=== PATIENT | male | born 1960 | race Caucasian/White ===

== ENCOUNTER 2016-06-30 08:37 | Emergency (ER) | payer MEDICAID ==
[~2016-06-30 08:37] MED LIST: ASPI81TA85 PO; LOVA1CAP17 PO; PERCOCET PO; TRAZ50TA4 PO; simvistatin PO
[2016-06-30] MEDS ORDERED: ADACEL/BOOSTRIX VACCINE (DIPHTH/PERTUSS/ACELL/TETANUS)0.5ML SYR (90715) As Ordered ONE (09:20)
--- NOTE | 2016-06-30 10:40 | REP ---
UNILATERAL RIGHT RIBS, PA CHEST, FIVE VIEWS: HISTORY: Injury. The lungs are clear. The heart is normal in size. The pulmonary vasculature is normal in appearance. The bony structure is intact. IMPRESSION: No acute disease. Signed by Sloan Alves MD 06/30/2016 10:41 A
--- NOTE | 2016-06-30 10:41 | REP ---
LEFT HIP, PELVIS, THREE VIEWS: HISTORY: Injury. There is no acute fracture or dislocation. The joint spaces are normal in appearance. IMPRESSION: There is no acute fracture or dislocation. Signed by Sloan Alves MD 06/30/2016 10:42 A
--- NOTE | 2016-06-30 10:43 | EDDOCDS ---
Nurse's Notes [facility] Name: Eliot Rodríguez Age: 56 yrs Sex: Male : 1960 Arrival Date: 06/30/2016 Time: 08:37 Bed TR7 Private MD: Diagnosis: Fall on same level due to ice and snow;Contusion of back wall of thorax;Contusion of left hip;Abrasion of right forearm Presentation: 06/30 08:55 Presenting complaint: Patient states: Right lateral chest left ankle and left hip pain mlb1 from fall last evening. Adult Sepsis Screening: The patient does not have new or worsening altered mentation. Patient's respiratory rate is less than 22. Systolic blood pressure is greater than 100. Patient has a qSOFA score of 0- Negative Sepsis Screen. Suicide/Homicide risk assessment- the patient denies having any suicidal and/or homicidal ideations and does not present with any other emotional, behavioral or mental health complaints. Status: Patient is not a job service consultant or dependent. Transition of care: patient was not received from another setting of care. 08:55 Acuity: LUCILA Level 4 mlb1 08:55 Method Of Arrival: Walkin/Carried/Asstd mlb1 Triage Assessment: 09:00 General: Appears uncomfortable, Behavior is appropriate for age, cooperative. Pain: mlb1 Location: right lateral posterior chest Pain currently is 7 out of 10 on a pain scale. HIV screening NA for this visit Offered previously. Historical: - Allergies: no known allergies; - Home Meds: 1. tizanidine oral oral Unknown as needed 2. Percocet 5-325 mg Oral tab 1 tab every 4 hours as needed 3. fenofibrate 40 mg oral tab 1 tab once daily 4. simvastatin 40 mg Oral tab 1 tab once daily 5. aspirin 81 mg Oral tab 1 tab once daily - PMHx: High Cholesterol; Chronic Back pain; - PSHx: left kidney; Lumbar Fusion; - Social history: Smoking status: Patient states former smoker of tobacco. No barriers to communication noted, The patient speaks fluent Liberian, Speaks appropriately for age. - Family history: Not pertinent. - : The pt / caregiver states he / she is not on anticoagulants. Home medication list is obtained from the patient. - Exposure Risk Screening:: None identified. Screenin:40 Screening information is obtained from the patient. Fall risk: No risks identified. ead Assistance ADL's: requires no assistance with activities of daily living. Abuse/DV Screen: The patient / caregiver reports he/she is: not in a situation that causes fear, pain or injury. Nutritional screening: No deficits noted. home support is adequate. Assessment: 10:40 Adult Sepsis Screening: The patient does not have new or worsening altered mentation. ead Patient's respiratory rate is less than 22. Systolic blood pressure is greater than 100. Patient has a qSOFA score of 0- Negative Sepsis Screen. General: Appears in no apparent distress, Behavior is appropriate for age, cooperative. Pain: Location: chest and right lateral posterior chest Pain currently is 6 out of 10 on a pain scale. Respiratory: Airway is patent Respiratory effort is even, unlabored. Musculoskeletal: Range of motion intact in all extremities. No deformity noted Swelling absent. Vital Signs: 09:01 BP 131 / 89; Pulse 72; Resp 16; Temp 98.4(TE); Pulse Ox 99% on R/A; Weight 90.72 kg mlb1 (R); Height 6 ft. 0 in. (182.88 cm) (R); Pain 7/10; 10:40 BP 118 / 77; Pulse 74; Resp 16; Temp 98.5(TE); Pulse Ox 99% on R/A; ead 09:01 Body Mass Index 27.12 (90.72 kg, 182.88 cm) mlb1 Vitals: 10:42 Log In Time: June 30, 2016 at 08:37. ead ED Course: 08:39 Patient visited by Wolfgang Pate. mm15 08:39 Patient moved to Waiting mm15 08:53 Patient moved to Triage 2 mlb1 08:55 Patient visited by Kan Melo RN. mlb1 08:56 Triage Initiated mlb1 09:03 Britt[facility] Malik [facility]-C [facility]. dt4 09:03 Bowen Mchugh MD is Attending Physician. dt4 09:03 Patient visited by Brittany Malik PA-C. dt4 09:20 Patient moved to PD2 / 27 mlb1 10:40 Patient moved to TR7 ead 10:40 The patient / caregiver is instructed regarding the plan of care and ED course. ead 10:40 No IV's were initiated during this patient's visit. No procedures done that require ead assistance. Administered Medications: 09:30 Drug: Tetanus- Diptheria-Acellular Pertussis 0.5 ml [diphth,pertussis(acel),tetanus 2.5 hs1 Lf unit-8 mcg-5 Lf/0.5mL IM syringe (0.5 mL)] {Voltage Inspector: [employer]. Exp: 07/29/2018. Lot #: [id number]. } Route: IM; Site: right deltoid; Order Results: There are currently no results for this order. Outcome: 10:34 Discharge ordered by Provider. dt4 10:41 Discharge Assessment: Patient awake and alert. obeys commands, Oriented to person, ead place and time. patient administered narcotics - no. The following High Risk Discharge criteria are identified: None. Discharged to home ambulatory. Condition: unchanged. Discharge instructions given to patient, Instructed on discharge instructions, follow up and referral plans. Demonstrated understanding of instructions, Pt was receptive of discharge instructions/ teaching. No special radiology studies were completed. Property sent home with patient. 10:42 Patient left the ED. ead Signatures: Kan Melo RN RN mlb1 Sakina Adams RN RN hs1 Wolfgang Pate mm15 Magali MurrellRN RN ead Brittany Malik PA-C PA-C dt4 Corrections: (The following items were deleted from the chart) 09:53 09:32 Tetanus- Diptheria-Acellular Pertussis 0.5 ml IM in right deltoid Voltage Inspector: hs1 [employer] Lot: [id number] Exp: 01/25/2017 hs1 MTDD
--- NOTE | 2016-06-30 10:43 | EDDOCDS ---
Physician Documentation [facility] Name: Eliot Rodríguez Age: 56 yrs Sex: Male : 1960 Arrival Date: 06/30/2016 Time: 08:37 Bed TR7 Private MD: Disposition: 06/30/16 10:34 Discharged to Home/Self Care. Impression: Fall on same level due to ice and snow, Contusion of back wall of thorax, Contusion of left hip, Abrasion of right forearm. - Condition is Stable. - Discharge Instructions: Abrasion, Chest Contusion. - Medication Reconciliation, Local Pharmacy Hours form. - Follow up: Emergency Department; When: As needed; Reason: Worsening of conditions. Follow up: Private Physician; When: 2 - 3 days; Reason: Wound/Symptom Recheck, Recheck today's complaints, Continuance of care. - Problem is new. - Symptoms are unchanged. - Notes: THERE WAS NO FRACTURES ON YOUR XRAYS TODAY. PLEASE FOLLOW UP WITH YOUR PRIMARY CARE PROVIDER IN THE NEXT FEW DAYS TO RECHECK YOUR SYMPTOMS. YOU MAY TAKE THE PERCOCET YOU HAVE AT HOME FOR PAIN. Historical: - Allergies: no known allergies; - Home Meds: 1. tizanidine oral oral Unknown as needed 2. Percocet 5-325 mg Oral tab 1 tab every 4 hours as needed 3. fenofibrate 40 mg oral tab 1 tab once daily 4. simvastatin 40 mg Oral tab 1 tab once daily 5. aspirin 81 mg Oral tab 1 tab once daily - PMHx: High Cholesterol; Chronic Back pain; - PSHx: left kidney; Lumbar Fusion; - Social history: Smoking status: Patient states former smoker of tobacco. No barriers to communication noted, The patient speaks fluent Paraguayan, Speaks appropriately for age. - Family history: Not pertinent. - : The pt / caregiver states he / she is not on anticoagulants. Home medication list is obtained from the patient. - Exposure Risk Screening:: None identified. Vital Signs: 06/30 09:01 BP 131 / 89; Pulse 72; Resp 16; Temp 98.4(TE); Pulse Ox 99% on R/A; Weight 90.72 kg / mlb1 200 lbs (R); Height 6 ft. 0 in. (182.88 cm) (R); Pain 7/10; 10:40 BP 118 / 77; Pulse 74; Resp 16; Temp 98.5(TE); Pulse Ox 99% on R/A; ead 09:01 Body Mass Index 27.12 (90.72 kg, 182.88 cm) mlb1 MDM: 09:11 Tetanus- Diptheria-Acellular Pertussis 0.5 ml IM once; Routine booster 10-64yrs, >64 dt4 with child contact [employer] ordered. 09:12 Rib Unilat W/PA Chest Only Ordered. EDMS 09:13 Spine. Lumbosacral, Complete Ordered. EDMS 09:13 Hip,AP,LAT to include Pelvis Ordered. EDMS 09:53 Tetanus- Diptheria-Acellular Pertussis 0.5 ml IM once; Routine booster 10-64yrs, >64 hs1 with child contact [employer] ordered. Administered Medications: 09:30 Drug: Tetanus- Diptheria-Acellular Pertussis 0.5 ml [diphth,pertussis(acel),tetanus 2.5 hs1 Lf unit-8 mcg-5 Lf/0.5mL IM syringe (0.5 mL)] {Director Of Digital Marketing: [employer]. Exp: 07/29/2018. Lot #: [id number]. } Route: IM; Site: right deltoid; Signatures: Dispatcher [employer] Kan Sandhu RN RN mlb1 Sakina Adams RN RN hs1 Magali Murrell RN RN eaBrittany Persaud PA-C PA-C dt4 MTDD
--- NOTE | 2016-07-02 11:43 | EDDOCDS ---
Physician Documentation [facility] Name: Eliot Rodríguez Age: 56 yrs Sex: Male : 1960 Arrival Date: 06/30/2016 Time: 08:37 Bed TR7 Private MD: Disposition: 06/30/16 10:34 Discharged to Home/Self Care. Impression: Fall on same level due to ice and snow, Contusion of back wall of thorax, Contusion of left hip, Abrasion of right forearm. - Condition is Stable. - Discharge Instructions: Abrasion, Chest Contusion. - Medication Reconciliation, Local Pharmacy Hours form. - Follow up: Emergency Department; When: As needed; Reason: Worsening of conditions. Follow up: Private Physician; When: 2 - 3 days; Reason: Wound/Symptom Recheck, Recheck today's complaints, Continuance of care. - Problem is new. - Symptoms are unchanged. - Notes: THERE WAS NO FRACTURES ON YOUR XRAYS TODAY. PLEASE FOLLOW UP WITH YOUR PRIMARY CARE PROVIDER IN THE NEXT FEW DAYS TO RECHECK YOUR SYMPTOMS. YOU MAY TAKE THE PERCOCET YOU HAVE AT HOME FOR PAIN. Historical: - Allergies: no known allergies; - Home Meds: 1. tizanidine oral oral Unknown as needed 2. Percocet 5-325 mg Oral tab 1 tab every 4 hours as needed 3. fenofibrate 40 mg oral tab 1 tab once daily 4. simvastatin 40 mg Oral tab 1 tab once daily 5. aspirin 81 mg Oral tab 1 tab once daily - PMHx: High Cholesterol; Chronic Back pain; - PSHx: left kidney; Lumbar Fusion; - Social history: Smoking status: Patient states former smoker of tobacco. No barriers to communication noted, The patient speaks fluent Cook Islander, Speaks appropriately for age. - Family history: Not pertinent. - : The pt / caregiver states he / she is not on anticoagulants. Home medication list is obtained from the patient. - Exposure Risk Screening:: None identified. Vital Signs: 06/30 09:01 BP 131 / 89; Pulse 72; Resp 16; Temp 98.4(TE); Pulse Ox 99% on R/A; Weight 90.72 kg / mlb1 200 lbs (R); Height 6 ft. 0 in. (182.88 cm) (R); Pain 7/10; 10:40 BP 118 / 77; Pulse 74; Resp 16; Temp 98.5(TE); Pulse Ox 99% on R/A; ead 09:01 Body Mass Index 27.12 (90.72 kg, 182.88 cm) mlb1 MDM: 09:11 Tetanus- Diptheria-Acellular Pertussis 0.5 ml IM once; Routine booster 10-64yrs, >64 dt4 with child contact [employer] ordered. 09:12 Rib Unilat W/PA Chest Only Ordered. EDMS 09:13 Spine. Lumbosacral, Complete Ordered. EDMS 09:13 Hip,AP,LAT to include Pelvis Ordered. EDMS 09:53 Tetanus- Diptheria-Acellular Pertussis 0.5 ml IM once; Routine booster 10-64yrs, >64 hs1 with child contact [employer] ordered. 12:55 Financial registration complete. mm15 13:56 T-Sheet-- Draft Copy was scanned into [employer] and attached to record. 15:25 [facility] Payment Agreement was scanned into [employer] and attached to record. mm15 Administered Medications: 09:30 Drug: Tetanus- Diptheria-Acellular Pertussis 0.5 ml [diphth,pertussis(acel),tetanus 2.5 hs1 Lf unit-8 mcg-5 Lf/0.5mL IM syringe (0.5 mL)] {Medical Education Specialist: [employer]. Exp: 07/29/2018. Lot #: [id number]. } Route: IM; Site: right deltoid; Signatures: Dispatcher [employer] EDFaina Ramos, Reg Reg gb Kan Melo RN RN mlb1 Sakina Adams RN RN hs1 Wolfgang Pate mm15 Magali Murrell,RN RN Brittany Mercer PA-C PA-C dt4 The chart was reviewed and I authenticate all verbal orders and agree with the evaluation and treatment provided.Attachments: 13:56 T-Sheet-- Draft Copy gb 15:25 [facility] Payment Agreement mm15 Chart Complete MTDD
--- NOTE | 2016-07-02 11:43 | EDDOCDS ---
Nurse's Notes [facility] Name: Eliot Rodríguez Age: 56 yrs Sex: Male : 1960 Arrival Date: 06/30/2016 Time: 08:37 Bed TR7 Private MD: Diagnosis: Fall on same level due to ice and snow;Contusion of back wall of thorax;Contusion of left hip;Abrasion of right forearm Presentation: 06/30 08:55 Presenting complaint: Patient states: Right lateral chest left ankle and left hip pain mlb1 from fall last evening. Adult Sepsis Screening: The patient does not have new or worsening altered mentation. Patient's respiratory rate is less than 22. Systolic blood pressure is greater than 100. Patient has a qSOFA score of 0- Negative Sepsis Screen. Suicide/Homicide risk assessment- the patient denies having any suicidal and/or homicidal ideations and does not present with any other emotional, behavioral or mental health complaints. Status: Patient is not a patient service associate or dependent. Transition of care: patient was not received from another setting of care. 08:55 Acuity: LUCILA Level 4 mlb1 08:55 Method Of Arrival: Walkin/Carried/Asstd mlb1 Triage Assessment: 09:00 General: Appears uncomfortable, Behavior is appropriate for age, cooperative. Pain: mlb1 Location: right lateral posterior chest Pain currently is 7 out of 10 on a pain scale. HIV screening NA for this visit Offered previously. Historical: - Allergies: no known allergies; - Home Meds: 1. tizanidine oral oral Unknown as needed 2. Percocet 5-325 mg Oral tab 1 tab every 4 hours as needed 3. fenofibrate 40 mg oral tab 1 tab once daily 4. simvastatin 40 mg Oral tab 1 tab once daily 5. aspirin 81 mg Oral tab 1 tab once daily - PMHx: High Cholesterol; Chronic Back pain; - PSHx: left kidney; Lumbar Fusion; - Social history: Smoking status: Patient states former smoker of tobacco. No barriers to communication noted, The patient speaks fluent Monegasque, Speaks appropriately for age. - Family history: Not pertinent. - : The pt / caregiver states he / she is not on anticoagulants. Home medication list is obtained from the patient. - Exposure Risk Screening:: None identified. Screenin:40 Screening information is obtained from the patient. Fall risk: No risks identified. ead Assistance ADL's: requires no assistance with activities of daily living. Abuse/DV Screen: The patient / caregiver reports he/she is: not in a situation that causes fear, pain or injury. Nutritional screening: No deficits noted. home support is adequate. Assessment: 10:40 Adult Sepsis Screening: The patient does not have new or worsening altered mentation. ead Patient's respiratory rate is less than 22. Systolic blood pressure is greater than 100. Patient has a qSOFA score of 0- Negative Sepsis Screen. General: Appears in no apparent distress, Behavior is appropriate for age, cooperative. Pain: Location: chest and right lateral posterior chest Pain currently is 6 out of 10 on a pain scale. Respiratory: Airway is patent Respiratory effort is even, unlabored. Musculoskeletal: Range of motion intact in all extremities. No deformity noted Swelling absent. Vital Signs: 09:01 BP 131 / 89; Pulse 72; Resp 16; Temp 98.4(TE); Pulse Ox 99% on R/A; Weight 90.72 kg mlb1 (R); Height 6 ft. 0 in. (182.88 cm) (R); Pain 7/10; 10:40 BP 118 / 77; Pulse 74; Resp 16; Temp 98.5(TE); Pulse Ox 99% on R/A; ead 09:01 Body Mass Index 27.12 (90.72 kg, 182.88 cm) mlb1 Vitals: 10:42 Log In Time: June 30, 2016 at 08:37. ead ED Course: 08:39 Patient visited by Wolfgang Pate. mm15 08:39 Patient moved to Waiting mm15 08:53 Patient moved to Triage 2 mlb1 08:55 Patient visited by Kan Melo RN. mlb1 08:56 Triage Initiated mlb1 09:03 Brittany Malik PA-C is [facility]. dt4 09:03 Bowen Mchugh MD is Attending Physician. dt4 09:03 Patient visited by Brittany Malik PA-C. dt4 09:20 Patient moved to PD2 / 27 mlb1 10:40 Patient moved to TR7 ead 10:40 The patient / caregiver is instructed regarding the plan of care and ED course. ead 10:40 No IV's were initiated during this patient's visit. No procedures done that require ead assistance. 10:44 Rib Unilat W/PA Chest Only Returned. EDMS 10:44 Hip,AP,LAT to include Pelvis Returned. EDMS 13:56 T-Sheet-- Draft Copy was scanned into [employer] and attached to record. gb 15:25 [facility] Payment Agreement was scanned into [employer] and attached to record. mm15 Administered Medications: 09:30 Drug: Tetanus- Diptheria-Acellular Pertussis 0.5 ml [diphth,pertussis(acel),tetanus 2.5 hs1 Lf unit-8 mcg-5 Lf/0.5mL IM syringe (0.5 mL)] {Merchandise Manager: [employer]. Exp: 07/29/2018. Lot #: [id number]. } Route: IM; Site: right deltoid; Order Results: Radiology Order: Rib Unilat W/PA Chest Only Test: Rib Unilat W/PA Chest Only REASON FOR EXAMINATION: right rib pain after fall; UNILATERAL RIGHT RIBS, PA CHEST, FIVE VIEWS:; ; HISTORY: Injury.; ; The lungs are clear. The heart is normal in size. The pulmonary vasculature is; normal in appearance. The bony structure is intact.; ; IMPRESSION:; ; No acute disease.; ; ; Signed by; Solan Alves MD 06/30/2016 10:41 A; Radiology Order: Hip,AP,LAT to include Pelvis Test: Hip,AP,LAT to include Pelvis REASON FOR EXAMINATION: left hip pain after fall; LEFT HIP, PELVIS, THREE VIEWS:; ; HISTORY: Injury.; ; There is no acute fracture or dislocation. The joint spaces are normal in; appearance.; ; IMPRESSION:; ; There is no acute fracture or dislocation.; ; ; Signed by; Sloan Alves MD 06/30/2016 10:42 A; Outcome: 10:34 Discharge ordered by Provider. dt4 10:41 Discharge Assessment: Patient awake and alert. obeys commands, Oriented to person, ead place and time. patient administered narcotics - no. The following High Risk Discharge criteria are identified: None. Discharged to home ambulatory. Condition: unchanged. Discharge instructions given to patient, Instructed on discharge instructions, follow up and referral plans. Demonstrated understanding of instructions, Pt was receptive of discharge instructions/ teaching. No special radiology studies were completed. Property sent home with patient. 10:42 Patient left the ED. cassandra Signatures: Dispatcher [employer] EDMS Faina Melvin, Reg Reg Kan Araya RN RN mlb1 Sakina Adams RN RN hs1 Wolfgang Pate mm15 Magali Murrell RN RN Brittany Mercer PA-C PA-C dt4 Corrections: (The following items were deleted from the chart) 09:53 09:32 Tetanus- Diptheria-Acellular Pertussis 0.5 ml IM in right deltoid Merchandise Manager: hs1 [employer] Lot: [id number] Exp: 01/25/2017 hs1 Chart [facility]
--- NOTE | 2016-07-02 11:43 | EDDOCDS ---
Physician Documentation [facility] Name: Eliot Rodríguez Age: 56 yrs Sex: Male : 1960 Arrival Date: 06/30/2016 Time: 08:37 Bed TR7 Private MD: Disposition: 06/30/16 10:34 Discharged to Home/Self Care. Impression: Fall on same level due to ice and snow, Contusion of back wall of thorax, Contusion of left hip, Abrasion of right forearm. - Condition is Stable. - Discharge Instructions: Abrasion, Chest Contusion. - Medication Reconciliation, Local Pharmacy Hours form. - Follow up: Emergency Department; When: As needed; Reason: Worsening of conditions. Follow up: Private Physician; When: 2 - 3 days; Reason: Wound/Symptom Recheck, Recheck today's complaints, Continuance of care. - Problem is new. - Symptoms are unchanged. - Notes: THERE WAS NO FRACTURES ON YOUR XRAYS TODAY. PLEASE FOLLOW UP WITH YOUR PRIMARY CARE PROVIDER IN THE NEXT FEW DAYS TO RECHECK YOUR SYMPTOMS. YOU MAY TAKE THE PERCOCET YOU HAVE AT HOME FOR PAIN. Historical: - Allergies: no known allergies; - Home Meds: 1. tizanidine oral oral Unknown as needed 2. Percocet 5-325 mg Oral tab 1 tab every 4 hours as needed 3. fenofibrate 40 mg oral tab 1 tab once daily 4. simvastatin 40 mg Oral tab 1 tab once daily 5. aspirin 81 mg Oral tab 1 tab once daily - PMHx: High Cholesterol; Chronic Back pain; - PSHx: left kidney; Lumbar Fusion; - Social history: Smoking status: Patient states former smoker of tobacco. No barriers to communication noted, The patient speaks fluent Stateless, Speaks appropriately for age. - Family history: Not pertinent. - : The pt / caregiver states he / she is not on anticoagulants. Home medication list is obtained from the patient. - Exposure Risk Screening:: None identified. Vital Signs: 06/30 09:01 BP 131 / 89; Pulse 72; Resp 16; Temp 98.4(TE); Pulse Ox 99% on R/A; Weight 90.72 kg / mlb1 200 lbs (R); Height 6 ft. 0 in. (182.88 cm) (R); Pain 7/10; 10:40 BP 118 / 77; Pulse 74; Resp 16; Temp 98.5(TE); Pulse Ox 99% on R/A; ead 09:01 Body Mass Index 27.12 (90.72 kg, 182.88 cm) mlb1 MDM: 09:11 Tetanus- Diptheria-Acellular Pertussis 0.5 ml IM once; Routine booster 10-64yrs, >64 dt4 with child contact [employer] ordered. 09:12 Rib Unilat W/PA Chest Only Ordered. EDMS 09:13 Spine. Lumbosacral, Complete Ordered. EDMS 09:13 Hip,AP,LAT to include Pelvis Ordered. EDMS 09:53 Tetanus- Diptheria-Acellular Pertussis 0.5 ml IM once; Routine booster 10-64yrs, >64 hs1 with child contact [employer] ordered. 12:55 Financial registration complete. mm15 13:56 T-Sheet-- Draft Copy was scanned into [employer] and attached to record. 15:25 [facility] Payment Agreement was scanned into [employer] and attached to record. mm15 Administered Medications: 09:30 Drug: Tetanus- Diptheria-Acellular Pertussis 0.5 ml [diphth,pertussis(acel),tetanus 2.5 hs1 Lf unit-8 mcg-5 Lf/0.5mL IM syringe (0.5 mL)] {Associate Professor Of Radiology: [employer]. Exp: 07/29/2018. Lot #: [id number]. } Route: IM; Site: right deltoid; Signatures: Dispatcher [employer] EDFaina Ramos, Reg Reg gb Kan Melo RN RN mlb1 Sakina Adams RN RN hs1 Wolfgang Pate mm15 Magali Murrell,RN RN Brittany Mercer PA-C PA-C dt4 The chart was reviewed and I authenticate all verbal orders and agree with the evaluation and treatment provided.Attachments: 13:56 T-Sheet-- Draft Copy gb 15:25 [facility] Payment Agreement mm15 Chart Complete MTDD
--- NOTE | 2016-07-02 12:47 | REP ---
5 view lumbosacral spine 06/30/2016. Indication: Low back and left hip pain after fall Comparison : Lumbosacral spine series 07/20/2011 Findings: There has been previous discectomy with disc cage placement at L5-S1. There has also been previous posterior pedicular fusion bilaterally at L5 and S1 with vertical stabilization rods. A laminectomy defect is noted at this level( L5-S1). There is no acute fracture or spondylolisthesis. Bilateral SI joints are intact. Impression: prior laminectomy and discectomy at L5-S1 with disc cage in place. There is fusion of the L5-S1 disc space, without change. No acute fracture or spondylolisthesis in lumbosacral spine Signed by Gertrudis Alaniz MD 07/02/2016 12:38 P
== END 2016-06-30 10:42 | disposition home or self-care (01) ==
LOC: M ED 08:37
DX: S50.811A Abrasion of right forearm, initial encounter (principal); S20.221A Contusion of right back wall of thorax, initial encounter; S70.02XA Contusion of left hip, initial encounter; W00.0XXA Fall on same level due to ice and snow, initial encounter; Y92.017 Garden or yard in single-family (private) house as the place of occurrence of the external cause; Y93.K1 Activity, walking an animal; Y99.8 Other external cause status; E78.00 Pure hypercholesterolemia, unspecified; M54.9 Dorsalgia, unspecified; Z87.891 Personal history of nicotine dependence; Z79.899 Other long term (current) drug therapy; Z79.82 Long term (current) use of aspirin; Z98.1 Arthrodesis status

== ENCOUNTER → 2017-03-09 | Outpatient (REF) | payer OTHER ==
[~2017-03-09] MED LIST changes: +TRAZ50TA11 PO; -TRAZ50TA4 PO
[2017-03-21 12:59] LABS: SUMMARY SEE SEPARATE REPORT
== END ==
LOC: M SFHCLERA 12:19
PROVIDERS: ATTEND Physician Assistant
DX: Z02.89 Encounter for other administrative examinations (principal)

== ENCOUNTER → 2017-05-23 | Outpatient (CLI) | payer OTHER ==
[2017-05-23 14:45] LABS: BASO % 0.4 % (0.0-1.0); EOS # 0.1 10^3/uL (0.0-0.50); EOS % 1.3 % (0.0-3.0); IMMATURE GRANULOCYTE % 0.5 % (0-0); LYMPH # 2.3 10^3/uL (1.5-4.5); LYMPH % 28.2 % (24.0-44.0); MEAN CORPUSCULAR HEMOGLOBIN 31.8 pg (27.0-33.0); MEAN CORPUSCULAR HGB CONC 33.3 g/dl (32.0-36.5); MEAN CORPUSCULAR VOLUME 95.3 fl (80.0-96.0); MONO # 0.6 10^3/uL (0.0-0.8); MONO % 6.9 % (0.0-5.0); NEUTROPHILS % 62.7 % (36.0-66.0); PLATELET COUNT, AUTOMATED 169 10^3/uL (150-450); RED CELL DISTRIBUTION WIDTH 15.9 % (11.5-14.5)
[2017-05-23 15:02] LABS: ALBUMIN 4.1 GM/DL (3.2-5.2); ALBUMIN/GLOBULIN RATIO 1.32 (1.00-1.93); ALKALINE PHOSPHATASE 74 U/L (45-117); ALT/SGPT 26 U/L (12-78); ANION GAP 6 MEQ/L (8-16); AST/SGOT 13 U/L (7-37); BILIRUBIN,TOTAL 1.2 MG/DL (0.2-1.0); BLOOD UREA NITROGEN 13 MG/DL (7-18); CALCIUM LEVEL 8.7 MG/DL (8.5-10.1); CARBON DIOXIDE LEVEL 29 MEQ/L (21-32); CHLORIDE LEVEL 107 MEQ/L (98-107); CHOLESTEROL LEVEL 202 MG/DL (<200); CREATININE FOR GFR 0.91 MG/DL (0.70-1.30); GLOMERULAR FILTRATION RATE > 60.0 (>56); GLUCOSE, FASTING 87 MG/DL (70-105); POTASSIUM SERUM 4.2 MEQ/L (3.5-5.1); SODIUM LEVEL 142 MEQ/L (136-145); TOTAL PROTEIN 7.2 GM/DL (6.4-8.2); TRIGLYCERIDES LEVEL 211 MG/DL (<150)
== END ==
LOC: M WUC 11:18
PROVIDERS: ATTEND Family Medicine
DX: M54.9 Dorsalgia, unspecified (principal)

== ENCOUNTER 2017-12-22 06:29 | Emergency (ER) | payer OTHER ==
[2017-12-22] MEDS: KETOROLAC 60 MG/2 ML VIAL (J1885) IM (07:21)
== END 2017-12-22 08:02 | disposition home or self-care (01) ==
LOC: M ED 06:29
DX: S79.911A Unspecified injury of right hip, initial encounter (principal); S39.012A Strain of muscle, fascia and tendon of lower back, initial encounter; W19.XXXA Unspecified fall, initial encounter; Y92.098 Other place in other non-institutional residence as the place of occurrence of the external cause; M54.9 Dorsalgia, unspecified; G89.29 Other chronic pain; K21.9 Gastro-esophageal reflux disease without esophagitis; R56.9 Unspecified convulsions; Z98.1 Arthrodesis status
CPT/HCPCS: J1885

== ENCOUNTER 2018-05-10 10:50 | Emergency (ER) | payer OTHER ==
[2018-05-10 11:40] LABS: BASO % 0.5 % (0.0-1.0); EOS # 0.1 10^3/uL (0.0-0.50); EOS % 0.7 % (0.0-3.0); HEMATOCRIT 36.8 % (42.0-52.0); HEMOGLOBIN 12.7 g/dl (13.5-17.5); IMMATURE GRANULOCYTE % 0.4 % (0-3.0); LYMPH % 26.6 % (24.0-44.0); MEAN CORPUSCULAR HEMOGLOBIN 29.6 pg (27.0-33.0); MEAN CORPUSCULAR HGB CONC 34.5 g/dl (32.0-36.5); MEAN CORPUSCULAR VOLUME 85.8 fl (80.0-96.0); MONO # 0.4 10^3/uL (0.0-0.8); NEUTROPHILS # 5.1 10^3/uL (1.8-7.7); NEUTROPHILS % 66.8 % (36.0-66.0); PLATELET COUNT, AUTOMATED 168 10^3/uL (150-450); RED BLOOD COUNT 4.29 10^6/uL (4.30-6.10); RED CELL DISTRIBUTION WIDTH 15.9 % (11.5-14.5); WHITE BLOOD COUNT 7.6 10^3/uL (4.0-10.0)
[2018-05-10 12:11] LABS: ALBUMIN 4.2 GM/DL (3.2-5.2); ALKALINE PHOSPHATASE 63 U/L (45-117); ALT/SGPT 27 U/L (12-78); ANION GAP 8 MEQ/L (8-16); AST/SGOT 23 U/L (7-37); BILIRUBIN,TOTAL 1.3 MG/DL (0.2-1.0); BLOOD UREA NITROGEN 13 MG/DL (7-18); CALCIUM LEVEL 8.7 MG/DL (8.5-10.1); CARBON DIOXIDE LEVEL 28 MEQ/L (21-32); CHLORIDE LEVEL 106 MEQ/L (98-107); CREATININE FOR GFR 0.98 MG/DL (0.70-1.30); GLOMERULAR FILTRATION RATE > 60.0 (>56); GLUCOSE, FASTING 99 MG/DL (70-100); POTASSIUM SERUM 4.3 MEQ/L (3.5-5.1); SODIUM LEVEL 142 MEQ/L (136-145); TOTAL PROTEIN 7.2 GM/DL (6.4-8.2)
[2018-05-10 12:19] LABS: HEPATITIS B SURFACE ANTIBODY NEGATIVE (POSITIVE)
[2018-05-10 12:57] LABS: HIV SCREEN CENTAUR EXPOSED NEGATIVE (NEGATIVE)
[2018-05-10 12:58] LABS: HEPATITIS C VIRUS ABY INDEX 0.1 INDEX (<0.8)
[2018-05-10 13:57] LABS: HEPATITIS B SURFACE ANTIGEN NEGATIVE (NEGATIVE)
== END 2018-05-10 12:07 | disposition home or self-care (01) ==
LOC: M ED 10:50
DX: S61.051A Open bite of right thumb without damage to nail, initial encounter (principal); S62.662A Nondisplaced fracture of distal phalanx of right middle finger, initial encounter for closed fracture; Y04.1XXA Assault by human bite, initial encounter; Y92.89 Other specified places as the place of occurrence of the external cause; Z79.899 Other long term (current) drug therapy
CPT/HCPCS: 73140

== ENCOUNTER → 2018-05-10 | Outpatient (CLI) | payer OTHER ==
[2018-05-10 13:47] LABS: BASO % 0.6 % (0.0-1.0); EOS # 0.1 10^3/uL (0.0-0.50); EOS % 0.9 % (0.0-3.0); HEMATOCRIT 34.7 % (42.0-52.0); HEMOGLOBIN 12.2 g/dl (13.5-17.5); IMMATURE GRANULOCYTE % 0.3 % (0-3.0); LYMPH # 2.4 10^3/uL (1.5-4.5); LYMPH % 34.2 % (24.0-44.0); MEAN CORPUSCULAR HEMOGLOBIN 29.9 pg (27.0-33.0); MEAN CORPUSCULAR HGB CONC 35.2 g/dl (32.0-36.5); MONO # 0.4 10^3/uL (0.0-0.8); MONO % 5.1 % (0.0-5.0); NEUTROPHILS # 4.1 10^3/uL (1.8-7.7); NEUTROPHILS % 58.9 % (36.0-66.0); PLATELET COUNT, AUTOMATED 161 10^3/uL (150-450); RED BLOOD COUNT 4.08 10^6/uL (4.30-6.10); WHITE BLOOD COUNT 6.9 10^3/uL (4.0-10.0)
[2018-05-10 14:08] LABS: ERYTHROCYTE SEDIMENTATION RATE 20 mm/hr (0-20)
[2018-05-10 14:09] LABS: ESTIMATED AVERAGE GLUCOSE 82 MG/DL (60-110); HEMOGLOBIN A1c 4.5 %
[2018-05-10 14:23] LABS: ALBUMIN 4.3 GM/DL (3.2-5.2); ALBUMIN/GLOBULIN RATIO 1.43 (1.00-1.93); ALKALINE PHOSPHATASE 67 U/L (45-117); ALT/SGPT 26 U/L (12-78); ANION GAP 6 MEQ/L (8-16); AST/SGOT 18 U/L (7-37); BILIRUBIN,TOTAL 1.2 MG/DL (0.2-1.0); BLOOD UREA NITROGEN 13 MG/DL (7-18); CALCIUM LEVEL 8.8 MG/DL (8.5-10.1); CARBON DIOXIDE LEVEL 29 MEQ/L (21-32); CHLORIDE LEVEL 104 MEQ/L (98-107); CPK CREATINE PHOSPHOKINASE 252 U/L (39-308); CREATININE FOR GFR 0.94 MG/DL (0.70-1.30); GLOMERULAR FILTRATION RATE > 60.0 (>56); GLUCOSE, FASTING 92 MG/DL (70-100); POTASSIUM SERUM 4.2 MEQ/L (3.5-5.1); RHEUMATOID FACTOR QUANT < 10.0 IU/ML (<15.0); SODIUM LEVEL 139 MEQ/L (136-145); TOTAL PROTEIN 7.3 GM/DL (6.4-8.2); VITAMIN B12 LEVEL 261 PG/ML (247-911)
[2018-05-10 14:24] LABS: FOLATE 16.9 NG/ML (>5.4)
[2018-05-12 08:08] LABS: ANTINUCLEAR ANTIBODIES DIRECT Negative (Negative); CERULOPLASMIN 25.2 mg/dL (16.0-31.0); COPPER PLASMA 93 ug/dL (72-166); LEAD BLOOD ADULT 4 ug/dL (0-4); MERCURY LEVEL None Detected ug/L (0.0-14.9)
[2018-05-12 11:24] LABS: ALBUMIN 4.54 GM/DL (3.29-5.55); ALBUMIN % 62.2 % (55.8-66.1); ALPHA-1-GLOBULIN % 4.7 % (2.9-4.9); ALPHA-1-GLOBULINS 0.34 GM/DL (0.17-0.41); ALPHA-2-GLOBULINS 0.54 GM/DL (0.42-0.99); ALPHA-2-GLOBULINS % 7.4 % (7.1-11.8); BETA-1-GLOBULINS 0.46 GM/DL (0.28-0.60); BETA-1-GLOBULINS % 6.3 % (4.7-7.2); BETA-2-GLOBULINS 0.34 GM/DL (0.19-0.55); BETA-2-GLOBULINS % 4.6 % (3.2-6.5); GAMMA GLOBULIN % 14.8 % (11.1-18.8); GAMMA GLOBULINS 1.08 GM/DL (0.65-1.58)
== END ==
LOC: M LAB 12:53
DX: G62.9 Polyneuropathy, unspecified (principal); G72.9 Myopathy, unspecified
CPT/HCPCS: 82525

== ENCOUNTER → 2018-08-17 | Outpatient (CLI) | payer OTHER ==
[~2018-08-17] MED LIST changes: +AUGM875T28 PO; +NORCOTAB PO; +ROBA500T PO; +SUBO8MIS SL; +TRAZ-160 PO; -TRAZ50TA11 PO
[2018-08-17 13:54] LABS: HEMATOCRIT 37.1 % (42.0-52.0); HEMOGLOBIN 12.6 g/dl (13.5-17.5)
--- NOTE | 2018-08-18 07:22 | ECGEPIP ---
Stationary ECG Study [facility] Test Date: 2018-08-17 Pat Name: EDILBERTO SPAIN Department: Room: - Gender: M Observer Helper: : 1960 Requested By: Yeyo Merino Order Number: [id number] Reading MD: Tristian Zimmerman Measurements Intervals [place] Rate: 87 P: 71 MS: 163 QRS: 74 QRSD: 100 T: 57 QT: 360 QTc: 434 Interpretive Statements SINUS RHYTHM WITH SINUS ARRHYTHMIA Comparison tracing not on file Electronically Signed On 08-18-2018 7:22:12 EST by Tristian Zimmerman
== END ==
LOC: M LAB 13:22
PROVIDERS: ATTEND Orthopaedic Surgery
DX: Z01.812 Encounter for preprocedural laboratory examination (principal); S83.241A Other tear of medial meniscus, current injury, right knee, initial encounter

== ENCOUNTER → 2018-11-15 | Outpatient (REF) | payer OTHER ==
[~2018-11-15] MED LIST changes: +HYDR-3715 PO; -NORCOTAB PO; -TRAZ-160 PO; +TRAZ-252 PO
[2018-11-15 18:43] LABS: ALBUMIN 4.2 GM/DL (3.2-5.2); ALT/SGPT 29 U/L (12-78); BILIRUBIN,TOTAL 1.5 MG/DL (0.2-1.0); BLOOD UREA NITROGEN 14 MG/DL (7-18); CALCIUM LEVEL 8.8 MG/DL (8.5-10.1); CARBON DIOXIDE LEVEL 25 MEQ/L (21-32); CHLORIDE LEVEL 107 MEQ/L (98-107); CHOLESTEROL LEVEL 181 MG/DL (<200); CHOLESTEROL RISK RATIO 4.309 (<5); CREATININE FOR GFR 0.84 MG/DL (0.70-1.30); GLOMERULAR FILTRATION RATE > 60.0 (>56); GLUCOSE, FASTING 94 MG/DL (70-100); HDL CHOLESTEROL 42 MG/DL (>40); LDL CHOLESTEROL 102 MG/DL (<100); NON-HDL-C 139 MG/DL; POTASSIUM SERUM 4.2 MEQ/L (3.5-5.1); SODIUM LEVEL 139 MEQ/L (136-145); TOTAL PROTEIN 7.3 GM/DL (6.4-8.2); TRIGLYCERIDES LEVEL 187 MG/DL (<150)
== END ==
LOC: M LAB REF 17:04
PROVIDERS: ATTEND Family Medicine Addiction Medicine
DX: Z00.01 Encounter for general adult medical examination with abnormal findings (principal)

== ENCOUNTER → 2019-02-23 | Outpatient (REF) | payer OTHER, MEDICAID ==
[~2019-02-23] MED LIST changes: +CIPR0.3S OS
[2019-02-23 13:09] LABS: ALBUMIN 4.3 GM/DL (3.2-5.2); ALT/SGPT 33 U/L (12-78); BILIRUBIN,TOTAL 1.2 MG/DL (0.2-1.0); BLOOD UREA NITROGEN 15 MG/DL (7-18); CALCIUM LEVEL 9.2 MG/DL (8.5-10.1); CARBON DIOXIDE LEVEL 26 MEQ/L (21-32); CHLORIDE LEVEL 108 MEQ/L (98-107); CHOLESTEROL LEVEL 165 MG/DL (<200); CHOLESTEROL RISK RATIO 4.125 (<5); CREATININE FOR GFR 0.87 MG/DL (0.70-1.30); GLOMERULAR FILTRATION RATE > 60.0 (>56); GLUCOSE, FASTING 107 MG/DL (70-100); HDL CHOLESTEROL 40 MG/DL (>40); LDL CHOLESTEROL 92 MG/DL (<100); NON-HDL-C 125 MG/DL; POTASSIUM SERUM 4.4 MEQ/L (3.5-5.1); SODIUM LEVEL 140 MEQ/L (136-145); TOTAL PROTEIN 7.3 GM/DL (6.4-8.2); TRIGLYCERIDES LEVEL 165 MG/DL (<150)
== END ==
LOC: M LAB REF 12:27
PROVIDERS: ATTEND Family Medicine Addiction Medicine
DX: E78.1 Pure hyperglyceridemia (principal)

== ENCOUNTER 2019-03-05 00:20 | Emergency (ER) | payer MEDICAID, OTHER ==
[~2019-03-05] VITALS: Ht 182.9 cm; Wt 90.9 kg
[~2019-03-05 00:20] MED LIST changes: -CIPR0.3S OS
[2019-03-05] MEDS ORDERED: FLUORESCEIN OPHTH 1 MG STRIP OS ONE (00:30)
[2019-03-05] MEDS ORDERED: TETRACAINE 0.5% OPHTH SOLN 4ML OS ONE (00:30)
[2019-03-05] MEDS ORDERED: CIPR0.3S OS (00:55)
[2019-03-05] MEDS ORDERED: CIPROFLOXACIN 0.3% OPHTH SOLN 2.5ML OS ONE (01:00)
[2019-03-05 01:14] VITALS: BP 155/89
== END 2019-03-05 01:24 | disposition home or self-care (01) ==
LOC: M ED 00:20
DX: S05.02XA Injury of conjunctiva and corneal abrasion without foreign body, left eye, initial encounter (principal); X58.XXXA Exposure to other specified factors, initial encounter; Y92.098 Other place in other non-institutional residence as the place of occurrence of the external cause; R56.9 Unspecified convulsions; K21.9 Gastro-esophageal reflux disease without esophagitis; Z98.1 Arthrodesis status

== ENCOUNTER → 2019-03-31 | Outpatient (CLI) | payer OTHER ==
[~2019-03-31] MED LIST changes: +CIPR0.3S OS
[2019-03-31 14:21] LABS: BASO # 0.1 10^3/uL (0.0-0.2); BASO % 0.9 % (0.0-1.0); EOS # 0.1 10^3/uL (0.0-0.5); EOS % 1.3 % (0.0-3.0); HEMATOCRIT 34.4 % (42.0-52.0); HEMOGLOBIN 11.7 g/dl (13.5-17.5); LYMPH # 1.7 10^3/uL (1.5-5.0); LYMPH % 30.3 % (24.0-44.0); MEAN CORPUSCULAR HEMOGLOBIN 30.7 pg (27.0-33.0); MEAN CORPUSCULAR VOLUME 90.3 fl (80.0-96.0); MONO # 0.3 10^3/uL (0.0-0.8); MONO % 5.2 % (0.0-5.0); NEUTROPHILS # 3.4 10^3/uL (1.5-8.5); NEUTROPHILS % 61.8 % (36.0-66.0); PLATELET COUNT, AUTOMATED 138 10^3/uL (150-450); RED BLOOD COUNT 3.81 10^6/uL (4.30-6.10); WHITE BLOOD COUNT 5.6 10^3/uL (4.0-10.0)
[2019-03-31 14:44] LABS: ALBUMIN 3.8 GM/DL (3.2-5.2); ALT/SGPT 29 U/L (12-78); BILIRUBIN,DIRECT 0.1 MG/DL (0.0-0.2); BILIRUBIN,TOTAL 0.7 MG/DL (0.2-1.0); BLOOD UREA NITROGEN 11 MG/DL (7-18); CALCIUM LEVEL 8.6 MG/DL (8.5-10.1); CARBON DIOXIDE LEVEL 29 MEQ/L (21-32); CHLORIDE LEVEL 110 MEQ/L (98-107); CREATININE FOR GFR 0.99 MG/DL (0.70-1.30); GLOMERULAR FILTRATION RATE > 60.0 (>56); GLUCOSE, FASTING 105 MG/DL (70-100); POTASSIUM SERUM 4.3 MEQ/L (3.5-5.1); SODIUM LEVEL 143 MEQ/L (136-145)
== END ==
LOC: M LAB 13:18
PROVIDERS: ATTEND Orthopaedic Surgery
DX: S83.231D Complex tear of medial meniscus, current injury, right knee, subsequent encounter (principal)

== ENCOUNTER → 2019-07-10 | Outpatient (CLI) | payer OTHER ==
[2019-07-10 18:08] LABS: BLOOD UREA NITROGEN 13 MG/DL (7-18); CREATININE FOR GFR 0.89 MG/DL (0.70-1.30); GLOMERULAR FILTRATION RATE > 60.0 (>49)
== END ==
LOC: M LAB 16:00
PROVIDERS: ATTEND Nurse Practitioner Family
DX: M17.12 Unilateral primary osteoarthritis, left knee (principal)

== ENCOUNTER → 2020-06-20 | Outpatient (CLI) | payer OTHER ==
[~2020-06-20] MED LIST changes: -ASPI81TA85 PO; +ASPI81TA86 PO; -CIPR0.3S OS; +CIPR0.3S6 OS; +PROHANCE 279.3MG/ML 15ML VIAL As Ordered ONE; +PROHANCE 279.3MG/ML 5ML VIAL As Ordered ONE
--- NOTE | 2020-06-20 14:22 | REP ---
INDICATION: HEARING LOSS; LT. COMPARISON: None. TECHNIQUE: Axial, sagittal, and coronal imaging planes are utilized. Sequences include spin echo, fast spin echo, FLAIR, diffusion-weighted scans, 3D inversion recovery thin-section imaging, and postcontrast T1 weighted scans. The contrast enhancement dose is 19 mL of intravenous ProHance. FINDINGS: No bony calvarial lesion is seen. Craniocervical junction upper cervical cord are normal in there are 2 tiny foci of low T1 high T2 signal intensity in the left cerebral peduncle. These areas are not associated with abnormal contrast enhancement or mass effect and are compatible with tiny old lacunar infarctions versus normal variant dilated perivascular space. . These are only 2 mm in size. There is no evidence of restricted diffusion here or elsewhere on diffusion-weighted scans. There is typical perivascular space dilation at the inferior aspect of the basal ganglia bilaterally. The internal auditory canals are normal and symmetric and 7th and 8th nerves are unremarkable. No other cranial nerve lesion is seen. No CP angle cistern mass is observed. There is no evidence of extra-axial fluid collection, mass mass or infarct elsewhere. Alvarado-white differentiation pattern is intact. No other white matter lesion is seen. Lateral 3rd and 4th ventricles are normal in size and position. Postcontrast images show no abnormal intracanalicular or extra canalicular contrast enhancement associated with either internal auditory canal. Enhancement is seen in normal vascular structures. No abnormal intracranial contrast enhancement is appreciated. IMPRESSION: The 2 tiny 2 mm foci of T2 hyperintensity in the left cerebral peduncle most likely old ischemic change or dilated perivascular space (normal variant). Otherwise negative MRI study of the brain and internal auditory canals without and with IV contrast. <Electronically signed by Romain Cannon > 06/20/20 [id number]
== END ==
LOC: M RAD 12:34
PROVIDERS: ATTEND Otolaryngology
DX: H90.A22 Sensorineural hearing loss, unilateral, left ear, with restricted hearing on the contralateral side (principal)
CPT/HCPCS: 70553; A9576

== ENCOUNTER → 2020-07-23 | Outpatient (REF) | payer OTHER ==
[~2020-07-23] MED LIST changes: -PROHANCE 279.3MG/ML 15ML VIAL As Ordered ONE; -PROHANCE 279.3MG/ML 5ML VIAL As Ordered ONE
[2020-07-23 17:57] LABS: BASO % 0.6 % (0.0-1.0); EOS # 0.1 10^3/uL (0.0-0.5); EOS % 1.9 % (0.0-3.0); LYMPH # 2.1 10^3/uL (1.5-5.0); LYMPH % 32.3 % (24.0-44.0); MEAN CORPUSCULAR HEMOGLOBIN 29.6 pg (27.0-33.0); MEAN CORPUSCULAR HGB CONC 32.4 g/dl (32.0-36.5); MEAN CORPUSCULAR VOLUME 91.1 fl (80.0-96.0); MONO # 0.4 10^3/uL (0.0-0.8); MONO % 6.3 % (0.0-5.0); NEUTROPHILS # 3.8 10^3/uL (1.5-8.5); NEUTROPHILS % 58.4 % (36.0-66.0); PLATELET COUNT, AUTOMATED 123 10^3/uL (150-450); RED BLOOD COUNT 4.06 10^6/uL (4.30-6.10); WHITE BLOOD COUNT 6.5 10^3/uL (4.0-10.0)
[2020-07-23 18:32] LABS: ALBUMIN 4.3 GM/DL (3.2-5.2); ALT/SGPT 39 U/L (12-78); BILIRUBIN,TOTAL 0.8 MG/DL (0.2-1.0); BLOOD UREA NITROGEN 13 MG/DL (7-18); CALCIUM LEVEL 8.8 MG/DL (8.8-10.2); CARBON DIOXIDE LEVEL 29 MEQ/L (21-32); CHLORIDE LEVEL 107 MEQ/L (98-107); CHOLESTEROL LEVEL 167 MG/DL (<200); CHOLESTEROL RISK RATIO 4.282 (<5); CREATININE FOR GFR 0.91 MG/DL (0.70-1.30); GLOMERULAR FILTRATION RATE > 60.0 (>49); GLUCOSE, FASTING 102 MG/DL (70-100); HDL CHOLESTEROL 39 MG/DL (>40); LDL CHOLESTEROL 84 MG/DL (<100); NON-HDL-C 128 MG/DL; POTASSIUM SERUM 5.3 MEQ/L (3.5-5.1); SODIUM LEVEL 142 MEQ/L (136-145); TOTAL PROTEIN 7.3 GM/DL (6.4-8.2); TRIGLYCERIDES LEVEL 218 MG/DL (<150)
[2020-07-23 19:14] LABS: HEPATITIS C VIRUS ABY INDEX 0.2 INDEX (<0.8); HIV 1&2 SCREEN CENTAUR NEGATIVE (NEGATIVE)
== END ==
LOC: M LAB REF 16:40
PROVIDERS: ATTEND Physician Assistant
DX: R03.0 Elevated blood-pressure reading, without diagnosis of hypertension (principal); Z11.59 Encounter for screening for other viral diseases; Z11.4 Encounter for screening for human immunodeficiency virus [HIV]

== ENCOUNTER → 2020-08-07 | Outpatient (REF) | payer OTHER ==
[2020-08-07 17:38] LABS: BASO # 0.1 10^3/uL (0.0-0.2); BASO % 0.9 % (0.0-1.0); EOS # 0.1 10^3/uL (0.0-0.5); EOS % 0.9 % (0.0-3.0); HEMATOCRIT 39.9 % (42.0-52.0); HEMOGLOBIN 12.6 g/dl (13.5-17.5); LYMPH # 1.6 10^3/uL (1.5-5.0); LYMPH % 23.6 % (24.0-44.0); MEAN CORPUSCULAR HEMOGLOBIN 29.7 pg (27.0-33.0); MEAN CORPUSCULAR HGB CONC 31.6 g/dl (32.0-36.5); MEAN CORPUSCULAR VOLUME 94.1 fl (80.0-96.0); MONO # 0.4 10^3/uL (0.0-0.8); MONO % 5.3 % (2.0-8.0); NEUTROPHILS # 4.6 10^3/uL (1.5-8.5); NEUTROPHILS % 68.5 % (36.0-66.0); PLATELET COUNT, AUTOMATED 147 10^3/uL (150-450); RED BLOOD COUNT 4.24 10^6/uL (4.30-6.10); WHITE BLOOD COUNT 6.7 10^3/uL (4.0-10.0)
[2020-08-07 18:02] LABS: BLOOD UREA NITROGEN 11 MG/DL (7-18); CALCIUM LEVEL 9.2 MG/DL (8.8-10.2); CARBON DIOXIDE LEVEL 31 MEQ/L (21-32); CHLORIDE LEVEL 106 MEQ/L (98-107); GLOMERULAR FILTRATION RATE > 60.0 (>49); GLUCOSE, FASTING 101 MG/DL (70-100); POTASSIUM SERUM 4.5 MEQ/L (3.5-5.1); SODIUM LEVEL 139 MEQ/L (136-145)
== END ==
LOC: M LAB REF 16:34
PROVIDERS: ATTEND Physician Assistant
DX: D64.9 Anemia, unspecified (principal)

== ENCOUNTER 2022-06-15 14:51 | Emergency (ER) | payer OTHER ==
[~2022-06-15] VITALS: Ht 182.9 cm; Wt 93.1 kg
[2022-06-15 21:18] LABS: RSV AMPLIFICATION NEGATIVE (NEGATIVE)
[2022-06-15 21:27] VITALS: BP 125/71
== END 2022-06-15 21:30 | disposition home or self-care (01) ==
LOC: M ED 14:51
DX: J09.X2 Influenza due to identified novel influenza A virus with other respiratory manifestations (principal); R56.9 Unspecified convulsions; K21.9 Gastro-esophageal reflux disease without esophagitis

== ENCOUNTER → 2022-08-31 | Outpatient (REF) | payer OTHER ==
[2022-08-31 14:05] LABS: ALBUMIN 4.5 G/DL (3.2-5.2); ALKALINE PHOSPHATASE 67 U/L (46-116); ALT/SGPT 28 U/L (7.0-40); AST/SGOT 26 U/L (<34); BILIRUBIN,TOTAL 1.3 MG/DL (0.3-1.2); BLOOD UREA NITROGEN 14 MG/DL (9-23); CALCIUM LEVEL 9.6 MG/DL (8.3-10.6); CARBON DIOXIDE LEVEL 28 MMOL/L (20-31); CHLORIDE LEVEL 107 MMOL/L (98-107); CHOLESTEROL LEVEL 218 MG/DL (<200); CHOLESTEROL RISK RATIO 5.05 (<5); CREATININE FOR GFR 0.91 MG/DL (0.70-1.30); GLOMERULAR FILTRATION RATE > 60.0 (>49); GLUCOSE, FASTING 109 MG/DL (74-106); HDL CHOLESTEROL 43.1 MG/DL (>40); LDL CHOLESTEROL 141.3 MG/DL (<100); NON-HDL-C 174.9 MG/DL; POTASSIUM SERUM 4.4 MMOL/L (3.5-5.1); SODIUM LEVEL 141 MMOL/L (136-145); TOTAL PROTEIN 7.2 G/DL (5.7-8.2); TRIGLYCERIDES LEVEL 168 MG/DL (<150)
[2022-08-31 14:06] LABS: THYROID STIMULATING HORMONE 1.596 uIU/ML (0.55-4.78)
== END ==
LOC: M LAB REF 12:46
PROVIDERS: ATTEND Family Medicine Addiction Medicine
DX: E66.3 Overweight (principal); R25.2 Cramp and spasm

== ENCOUNTER 2023-02-19 10:15 | Emergency (ER) | payer OTHER ==
[~2023-02-19] VITALS: Ht 182.9 cm; Wt 93.0 kg
[~2023-02-19 10:15] MED LIST changes: +CIPR0.3S37 OS; -CIPR0.3S6 OS
[2023-02-19] MEDS ORDERED: KETOROLAC 60MG 2ML VIAL IM ONE (12:35)
[2023-02-19 13:01] VITALS: BP 153/83; TEMP 97.8; O2SAT 96
== END 2023-02-19 13:03 | disposition home or self-care (01) ==
LOC: EDBD 10:15 → M ED 10:15
DX: M54.50 Low back pain, unspecified (principal); R56.9 Unspecified convulsions; K21.9 Gastro-esophageal reflux disease without esophagitis; Z79.899 Other long term (current) drug therapy
CPT/HCPCS: 72110; 73110; 73130; 73521; 96372; 99284; J1885

== ENCOUNTER 2023-02-22 19:42 | Emergency (ER) | payer OTHER ==
[~2023-02-22] VITALS: Ht 182.9 cm; Wt 8.6 kg
[2023-02-22 19:43] VITALS: BP 170/86; TEMP 98.3; O2SAT 97
[2023-02-22] MEDS ORDERED: IBUP-1022 PO (19:52)
[2023-02-23] MEDS ORDERED: SUBO12MI (12:29)
[2023-02-23] MEDS ORDERED: METH-1165 PO (18:35)
[2023-02-23] MEDS ORDERED: MEDR4PAK PO (18:35)
[2023-02-23] MEDS ORDERED: ASPE4PAD TOP (18:35)
== END 2023-02-22 21:58 | disposition left against medical advice (07) ==
LOC: M ED 19:42
DX: Z53.21 Procedure and treatment not carried out due to patient leaving prior to being seen by health care provider (principal)

== ENCOUNTER 2023-02-23 12:05 | Emergency (ER) | payer OTHER ==
[~2023-02-23] VITALS: Ht 182.9 cm; Wt 90.8 kg
[~2023-02-23 12:05] MED LIST changes: +IBUP-1022 PO
[2023-02-23] MEDS ORDERED: SUBO12MI (12:29)
[2023-02-23] MEDS ORDERED: methocarbamoL 750 MG TAB PO ONE (16:25)
[2023-02-23] MEDS ORDERED: LIDOCAINE 5% (LIDODERM) PATCH TD ONE (16:25)
[2023-02-23] MEDS ORDERED: KETOROLAC 60MG 2ML VIAL IM ONE (16:25)
[2023-02-23] MEDS ORDERED: OMEPRAZOLE 20MG CAP PO ONE (17:05)
[2023-02-23] MEDS ORDERED: ONDANSETRON 4MG ORAL DISINTEGRATING TAB PO ONE (17:05)
[2023-02-23] MEDS ORDERED: MEDR4PAK PO (18:35)
[2023-02-23] MEDS ORDERED: METH-1165 PO (18:35)
[2023-02-23] MEDS ORDERED: ASPE4PAD TOP (18:35)
[2023-02-23 18:52] VITALS: BP 161/90; TEMP 98.1; O2SAT 98
== END 2023-02-23 18:53 | disposition home or self-care (01) ==
LOC: M ED 12:05
DX: S06.0X0A Concussion without loss of consciousness, initial encounter (principal); W19.XXXA Unspecified fall, initial encounter; Y92.410 Unspecified street and highway as the place of occurrence of the external cause; Y93.89 Activity, other specified; Y99.8 Other external cause status; M54.16 Radiculopathy, lumbar region; R56.9 Unspecified convulsions; R51.9 Headache, unspecified; K21.9 Gastro-esophageal reflux disease without esophagitis; Z79.899 Other long term (current) drug therapy
CPT/HCPCS: 70450; 72131; 96372; 99283; J1885

== ENCOUNTER → 2023-06-10 | Outpatient (CLI) | payer OTHER ==
[~2023-06-10] MED LIST changes: +ASPE4PAD TOP; +MEDR4PAK PO; +METH-1165 PO; +SUBO12MI
[2023-06-10 15:25] LABS: BASO # 0.1 10^3/uL (0.0-0.2); BASO % 0.7 % (0.0-1.0); EOS # 0.1 10^3/uL (0.0-0.5); EOS % 0.9 % (0.0-3.0); HEMATOCRIT 39.2 % (42.0-52.0); HEMOGLOBIN 13.5 g/dl (13.5-17.5); LYMPH # 1.9 10^3/uL (1.5-5.0); MEAN CORPUSCULAR HEMOGLOBIN 31.3 pg (27.0-33.0); MEAN CORPUSCULAR HGB CONC 34.4 g/dl (32.0-36.5); MEAN CORPUSCULAR VOLUME 90.7 fl (80.0-96.0); MONO # 0.5 10^3/uL (0.0-0.8); MONO % 4.9 % (2.0-8.0); NEUTROPHILS # 7.9 10^3/uL (1.5-8.5); PLATELET COUNT, AUTOMATED 152 10^3/uL (150-450); RED BLOOD COUNT 4.32 10^6/uL (4.30-6.10); WHITE BLOOD COUNT 10.6 10^3/uL (4.0-10.0)
[2023-06-10 15:48] LABS: LIPASE 36 U/L (12-53)
[2023-06-10 15:50] LABS: ALBUMIN 4.1 G/DL (3.2-5.2); ALKALINE PHOSPHATASE 81 U/L (46-116); ALT/SGPT 13 U/L (7.0-40); AMYLASE 95 U/L (30-118); AST/SGOT 12 U/L (<34); BILIRUBIN,TOTAL 1.1 MG/DL (0.3-1.2); BLOOD UREA NITROGEN 11 MG/DL (9-23); CALCIUM LEVEL 9.3 MG/DL (8.3-10.6); CARBON DIOXIDE LEVEL 30 MMOL/L (20-31); CHLORIDE LEVEL 107 MMOL/L (98-107); CREATININE FOR GFR 0.86 MG/DL (0.70-1.30); GLOMERULAR FILTRATION RATE > 60.0 (>49); GLUCOSE, FASTING 95 MG/DL (74-106); POTASSIUM SERUM 4.5 MMOL/L (3.5-5.1); SODIUM LEVEL 142 MMOL/L (136-145); TOTAL PROTEIN 6.8 G/DL (5.7-8.2)
== END ==
LOC: M LAB 14:44
PROVIDERS: ATTEND Family Medicine Addiction Medicine
DX: K29.70 Gastritis, unspecified, without bleeding (principal)

== ENCOUNTER 2023-09-12 08:16 | Day surgery (SDC) | payer OTHER ==
[~2023-09-12] VITALS: Ht 182.9 cm; Wt 87.3 kg
[~2023-09-12 08:16] MED LIST changes: +DICY1CAP8 PO; +ESOM1CAP5 PO
[2023-09-12] MEDS: NS 1,000 ML IV ONE (08:49)
[2023-09-12] MEDS ORDERED: propofoL 500 MG/50 ML VIAL As Ordered ONE (10:06)
[2023-09-12 10:13] VITALS: TEMP 97.9
[2023-09-12 10:35] VITALS: BP 142/84; O2SAT 99
== END 2023-09-12 10:45 | disposition home or self-care (01) ==
LOC: M OPP 08:16
PROVIDERS: ATTEND Internal Medicine Gastroenterology
DX: Z12.11 Encounter for screening for malignant neoplasm of colon (principal); K64.0 First degree hemorrhoids; K57.30 Diverticulosis of large intestine without perforation or abscess without bleeding; K44.9 Diaphragmatic hernia without obstruction or gangrene; K22.89 Other specified disease of esophagus; Z87.891 Personal history of nicotine dependence; Z79.899 Other long term (current) drug therapy